=== PATIENT | male | born 1975 | race Two or more races ===

== ENCOUNTER 2017-03-29 19:37 | Emergency (ER) | payer SELFPAY ==
[~2017-03-29] VITALS: Ht 157.5 cm; Wt 61.0 kg
[2017-03-30] MEDS ORDERED: SODIUM CHLORIDE 0.9% 1,000 ML IV ONE (00:33)
[2017-03-30] MEDS ORDERED: ONDANSETRON HCL 4MG/2ML VIAL IV STA (00:33)
[2017-03-30 00:50] LABS: BASOPHILS % 0.7 % (0.0-2.0); EOSINOPHILS % 0.1 % (0.0-5.0); HEMATOCRIT. 46.3 % (42.0-52.0); HEMOGLOBIN. 15.7 g/dL (14.0-18.0); LYMPHOCYTES % 10.4 % (20.0-50.0); MEAN CORPUSCULAR HEMOGLOBIN 30.5 pg (28.0-32.0); MEAN CORPUSCULAR VOLUME 89.8 fL (80.0-94.0); MEAN PLATELET VOLUME 7.8 fl (7.4-10.4); MONOCYTES % 4.4 % (2.0-8.0); NEUTROPHILS % 84.4 % (40.0-76.0); PLATELET 202 x1000/uL (130-400); RED BLOOD CELL COUNT 5.15 mill/uL (4.7-6.1); RED CELL DISTRIBUTION WIDTH 14.8 % (11.6-14.6)
[2017-03-30 00:56] LABS: CHLORIDE 102 mEq/L (98-107)
[2017-03-30 01:04] LABS: CARBON DIOXIDE 21 mEq/L (21-32)
[2017-03-30 04:19] VITALS: BP 125/69
== END 2017-03-30 06:03 | disposition home or self-care (01) ==
LOC: ER 19:37
DX: T51.0X1A Toxic effect of ethanol, accidental (unintentional), initial encounter (principal); F10.20 Alcohol dependence, uncomplicated; Y92.89 Other specified places as the place of occurrence of the external cause; K85.90 Acute pancreatitis without necrosis or infection, unspecified
CPT/HCPCS: 36415; 80053; 83690; 85025; 93005; 96361; 96374; 99285; J2405; J7030; Z7610